=== PATIENT | female | born 1955 | race Caucasian/White ===

== ENCOUNTER 2018-03-23 09:01 | Emergency (ER) | payer MEDICARE ==
[2018-03-23] MEDS ORDERED: IPRATROPIUM/ALBUTEROL 0.5-2.5 MG/3 ML AMPUL NEB ONE (09:49)
[2018-03-23] MEDS ORDERED: PREDNISONE 20 MG TABLET PO ONE (09:50)
--- NOTE | 2018-03-23 10:19 | RADIOLOGY REPORT (SQ) ---
EXAM DESCRIPTION: CHEST 2 VIEWS COMPLETED DATE/TIME: 03/23/2018 10:07 am REASON FOR STUDY: cough COMPARISON: None. EXAM PARAMETERS: NUMBER OF VIEWS: two views TECHNIQUE: Digital Frontal and Lateral radiographic views of the chest acquired. RADIATION DOSE: NA LIMITATIONS: none FINDINGS: LUNGS AND PLEURA: No opacities, masses or pneumothorax. No pleural effusion. MEDIASTINUM AND HILAR STRUCTURES: No masses or contour abnormalities. HEART AND VASCULAR STRUCTURES: Heart normal size. No evidence for failure. BONES: No acute findings. HARDWARE: None in the chest. OTHER: No other significant finding. IMPRESSION: NO ACUTE RADIOGRAPHIC FINDING IN THE CHEST. TECHNICAL DOCUMENTATION: JOB ID: [id number] [employer]- All Rights Reserved Reading location - IP/workstation name: [email or web address]
[2018-03-23 10:43] LABS: VENOUS BLOOD BASE EXCESS 3.4 mmol/L; VENOUS BLOOD HCO3 30.1 mmol/L (20-32); VENOUS BLOOD PCO2 52.5 mmHg (35-63); VENOUS BLOOD PH 7.38 (7.30-7.42)
[2018-03-23 10:44] LABS: ABSOLUTE EOSINOPHILS # (AUTO) 0.1 10^3/uL (0.0-0.6); ABSOLUTE LYMPHOCYTES (AUTO) 1.2 10^3/uL (0.5-4.7); ABSOLUTE MONOCYTES (AUTO) 0.5 10^3/uL (0.1-1.4); ABSOLUTE NEUT (AUTO) 4.9 10^3/uL (1.7-8.2); BASOPHILS % (AUTO) 0.4 % (0-2); EOSINOPHILS % (AUTO) 1.8 % (0-6); HEMATOCRIT 45.6 % (36.0-47.0); HEMOGLOBIN 15.2 g/dL (12.0-15.5); LYMPHOCYTES % (AUTO) 17.3 % (13-45); MEAN CORPUSCULAR HEMOGLOBIN 30.5 pg (27.0-33.4); MEAN CORPUSCULAR HGB CONC 33.3 g/dL (32.0-36.0); MEAN CORPUSCULAR VOLUME 92 fl (80-97); MONOCYTES % (AUTO) 6.9 % (3-13); PLATELET COUNT 146 10^3/uL (150-450); RED BLOOD COUNT 4.98 10^6/uL (3.72-5.28); RED CELL DISTRIBUTION WIDTH 14.1 % (11.5-14.0); SEGMENTED NEUTROPHILS % (AUTO) 73.6 % (42-78); TOTAL CELLS COUNTED % (AUTO) 100 %; WHITE BLOOD COUNT 6.6 10^3/uL (4.0-10.5)
[2018-03-23 11:05] LABS: ANION GAP 8 (5-19); BLOOD UREA NITROGEN 14 mg/dL (7-20); CALCIUM 9.5 mg/dL (8.4-10.2); CARBON DIOXIDE 26 mmol/L (22-30); CHLORIDE 105 mmol/L (98-107); GLUCOSE 157 mg/dL (75-110); SODIUM 139.2 mmol/L (137-145)
[2018-03-23] MEDS ORDERED: ALBUTEROL SULFATE HFA (90 MCG/PUFF) 8 GM MDI (1 MDI/ER DISP) IH PRN (11:42)
[2018-03-23 11:43] VITALS: BP 141/79
[2018-03-23] MEDS ORDERED: DOXYCYCLINE HYCLATE 100 MG TABLET PO ONE (11:43)
[2018-03-23] MEDS ORDERED: BENZONATATE 100 MG CAPSULE PO ONE (11:43)
--- NOTE | 2018-03-23 11:47 | ER Document Report ---
ED General - General Chief Complaint: Cough Stated Complaint: COUGH, FEVER, DIFFICULTY BREATHING Time Seen by Provider: 03/23/18 09:46 Mode of Arrival: Ambulatory Information source: Patient, [facility] Records Notes: 62-year-old female with hypertension, COPD, type 2 diabetes presents with complaint of productive cough, chills, nasal drainage and generalized achiness. Patient also reports sinus pressure. Patient does continue to smoke. She does admit to associated shortness of breath with coughing fits. She denies chest pain, abdominal pain, vomiting, diarrhea. She has not had a flu shot. She reports subjective fevers at home. TRAVEL OUTSIDE OF THE [place] IN LAST 30 DAYS: No - HPI Onset: Yesterday Onset/Duration: Gradual, Persistent Quality of pain: Achy Associated symptoms: Body/muscle aches, Productive cough, Fever, Sinus pain/drainage. denies: Nausea, Vomiting Exacerbated by: Walking, Coughing Relieved by: Denies Similar symptoms previously: Yes Recently seen / treated by doctor: No - Related Data Allergies/Adverse Reactions: acetaminophen [From Percocet] Allergy (Verified 03/23/18 09:05) codeine Allergy (Verified 03/23/18 09:05) rash oxycodone [From Percocet] Allergy (Verified 03/23/18 09:05) Tetanus Vaccines and Toxoid Allergy (Verified 03/23/18 09:05) propoxyphene [From Darvon] Adverse Reaction (Verified 03/23/18 09:05) Nausea Past Medical History - General Information source: Patient, [facility] Records - Social History Smoking Status: Current Every Day Smoker Cigarette use (# per day): Yes - 20 Chew tobacco use (# tins/day): No Smoking Education Provided: Yes - Smoking cessation counseling was provided for 4 minutes at the bedside Frequency of alcohol use: None Drug Abuse: None Lives with: Alone Family History: Reviewed & Not Pertinent Patient has suicidal ideation: No Patient has homicidal ideation: No - Past Medical History Cardiac Medical History: Reports: Hx Hypertension Pulmonary Medical History: Reports: Hx COPD Neurological Medical History: Reports: Hx Migraine Endocrine Medical History: Reports: Hx Diabetes Mellitus Type 2 Renal/ Medical History: Denies: Hx Peritoneal Dialysis Past Surgical History: Reports: Hx Cardiac Catheterization - x4, Hx Cholecystectomy, Hx Orthopedic Surgery - back x5, R knee replacement Review of Systems - Review of Systems Notes: REVIEW OF SYSTEMS: CONSTITUTIONAL : Denies recent illness. Denies weight loss, recent hospitalizations. EENT: Denies visual changes, eye pain. Denies sore throat, oral lesions, difficulty swallowing. CARDIOVASCULAR: Denies chest pain. Denies palpitations. Denies lower extremity edema. RESPIRATORY: + Cough, shortness of breath, wheezing GASTROINTESTINAL: Denies abdominal pain or distention. Denies nausea, vomiting, or diarrhea. Denies blood in vomitus, stools, or per rectum. Denies black, tarry stools. Denies constipation. GENITOURINARY: Denies difficulty urinating, painful urination, frequency, blood in urine, or vaginal discharge. MUSCULOSKELETAL: Denies back or neck pain or stiffness. Denies joint pain or swelling. SKIN: Denies rash, lesions or sores. HEMATOLOGIC : Denies easy bruising or bleeding. LYMPHATIC: Denies swollen glands. NEUROLOGICAL: Denies confusion or altered mental status. Denies loss of consciousness. Denies dizziness or lightheadedness. Denies headache. Denies weakness or paralysis. Denies problems difficulty with ambulation, slurred speech. Denies sensory loss, numbness, or tingling. Denies seizures. PSYCHIATRIC: Denies anxiety or stress. Denies depression, suicidal ideation, or homicidal ideation. Denies visual or auditory hallucinations. Physical Exam - Vital signs Vitals: Temp Pulse Resp BP Pulse Ox 97.8 F 90 18 133/78 H 95 03/23/18 09:13 03/23/18 09:13 03/23/18 09:13 03/23/18 09:13 03/23/18 09:13 - Notes Notes: PHYSICAL EXAMINATION: GENERAL: Well-appearing, well-nourished and in no acute distress. HEAD: Atraumatic, normocephalic. EYES: Pupils equal round and reactive to light, extraocular movements intact, c onjunctiva are normal. ENT: Nares patent, oropharynx clear without exudates. Moist mucous membranes. NECK: Normal range of motion, supple without lymphadenopathy LUNGS: Mild expiratory wheezing. No accessory muscle use. Harsh cough. HEART: Regular rate and rhythm without murmurs ABDOMEN: Soft, nontender, nondistended abdomen. No guarding, no rebound. No masses appreciated. Female : deferred Musculoskeletal: Normal range of motion, no pitting or edema. No cyanosis. NEUROLOGICAL: Cranial nerves grossly intact. Normal speech, normal gait. Normal sensory, motor exams PSYCH: Normal mood, normal affect. SKIN: Warm, Dry, normal turgor, no rashes or lesions noted. Course - Re-evaluation Re-evalutation: Laboratory 03/23/18 03/23/18 03/23/18 10:17 10:17 10:17 WBC 6.6 RBC 4.98 Hgb 15.2 Hct 45.6 MCV 92 MCH 30.5 MCHC 33.3 RDW 14.1 H Plt Count 146 L Seg Neutrophils % 73.6 Lymphocytes % 17.3 Monocytes % 6.9 Eosinophils % 1.8 Basophils % 0.4 Absolute Neutrophils 4.9 Absolute Lymphocytes 1.2 Absolute Monocytes 0.5 Absolute Eosinophils 0.1 Absolute Basophils 0.0 VBG pH 7.38 VBG pCO2 52.5 VBG HCO3 30.1 VBG Base Excess 3.4 Sodium 139.2 Potassium 4.0 Chloride 105 Carbon Dioxide 26 Anion Gap 8 BUN 14 Creatinine 0.46 L Est GFR ( Amer) > 60 Est GFR (Non-Af Amer) > 60 Glucose 157 H Calcium 9.5 Chest X-Ray 03/23/18 09:50 IMPRESSION: NO ACUTE RADIOGRAPHIC FINDING IN THE CHEST. Temp Pulse Resp BP Pulse Ox 97.7 F 92 18 141/79 H 94 03/23/18 11:42 03/23/18 11:42 03/23/18 11:42 03/23/18 11:42 03/23/18 11:42 03/23/18 11:45 Patient presents with a clinical history and exam most consistent with an acute viral bronchitis. Patient is overall well in appearance without tachypnea, hypoxemia, tachycardia, or difficulty with ambulation. Breath sounds are clear bilaterally. No fever. Patient does have additional signs of upper respiratory infection including nasal congestion, sore throat, and sinus pressure. Chest x- ray without evidence of pneumonia. CBC, BMP and venous blood gas are all within normal limits. Will treat with bronchodilators, prednisone and Tessalon Perles and doxycycline due to patient's history of COPD and reported increased sputum production. At this time will discharge with return precautions and follow-up recommendations. Verbal discharge instructions given a the bedside and opportunity for questions given. Medication warnings reviewed. Patient is in agreement with this plan and has verbalized understanding of return precautions and the need for primary care follow-up in the next 24-72 hours. Patient was evaluated and treated as appropriate for the patient's presenting symptoms and complaint, with consideration of any critical or life threatening conditions that may be associated with their obtained history and exam as noted above. All results were discussed with patient . Patient provided the opportunity to ask questions, and express concerns. Patient was educated on treatments based on their presumed diagnosis as noted above. At this time we will discharge the patient with return precautions and follow-up recommendations. Verbal discharge instructions given a the bedside. Medication warnings reviewed. Patient is in agreement with this plan and has verbalized understanding of return precautions. After careful consideration I feel that that patient can be safely discharged from the emergency department, they were advised to followup with a primary care physician in 2-3 days. Dictation on this chart was performed using voice recognition software and may result in unintended grammatical, spelling, syntax or errors. 03/23/18 11:47 03/23/18 17:17 - Vital Signs Vital signs: Temp Pulse Resp BP Pulse Ox 97.7 F 92 18 141/79 H 94 03/23/18 11:42 03/23/18 11:42 03/23/18 11:42 03/23/18 11:42 03/23/18 11:42 - Laboratory Result Diagrams: 03/23/18 10:17 03/23/18 10:17 Laboratory results interpreted by me: 03/23/18 03/23/18 10:17 10:17 RDW 14.1 H Plt Count 146 L Creatinine 0.46 L Glucose 157 H - Diagnostic Test Radiology reviewed: Image reviewed, Reports reviewed Discharge - Discharge Clinical Impression: Bronchitis, COPD exacerbation Upper respiratory infection Qualifiers: URI type: unspecified URI Qualified Code(s): J06.9 - Acute upper respiratory infection, unspecified Condition: Good Disposition: HOME, SELF-CARE Instructions: Chronic Obstructive Lung Disease ([facility]), Upper Respiratory Illness ([facility]), Viral Syndrome ([facility]) Additional Instructions: You were seen for symptoms most consistent with bronchitis. This can take up to 12 weeks to fully resolve. This is generally due to a viral infection. Please follow-up with your primary doctor in the next 2-3 days. Return if you develop worsening cough, vomiting, fever >100.4, pass out, begin coughing blood, or have any other symptoms that are concerning to you. Please use the medications prescribed today as directed. Prescriptions: Benzonatate [Tessalon Perle 100 mg Capsule] 200 mg PO Q8HP PRN #20 cap PRN Reason: Doxycycline Hyclate 100 mg PO BID #14 capsule Prednisone [Deltasone 20 mg Tablet] 2 tab PO DAILY 5 Days #10 tablet Forms: Smoking Cessation Education, Elevated Blood Pressure Referrals: LOCALMD,NO [NO LOCAL MD] - Follow up as needed
== END 2018-03-23 11:49 | disposition home or self-care (01) ==
LOC: ER 09:01
DX: J44.1 Chronic obstructive pulmonary disease with (acute) exacerbation (principal); J06.9 Acute upper respiratory infection, unspecified; R05 Cough; R50.9 Fever, unspecified; R09.89 Other specified symptoms and signs involving the circulatory and respiratory systems; M79.10 Myalgia, unspecified site; R06.02 Shortness of breath; R06.2 Wheezing; I10 Essential (primary) hypertension; E11.9 Type 2 diabetes mellitus without complications; F17.210 Nicotine dependence, cigarettes, uncomplicated
CPT/HCPCS: 94640; 99284; 36415; 85025; 80048; 82803; 71046; A9270 ×4; J3490; J7512; J7620